=== PATIENT | male | born 1965 | race Caucasian/White ===

== ENCOUNTER 2016-10-05 13:42 | Inpatient (IN) ==
[2016-10-05] MEDS ORDERED: *HR* LORazepam 2 MG/ML VIAL IVP ONE (14:00)
[2016-10-05 14:17] LABS: Basophils % 0.3 %; Eosinophils % 0.5 %; Hemoglobin 20.4 g/dL (12.9-16.9); Immature Granulocytes % 0.4 % (0-4); Lymphocytes # 0.9 K/mcL (0.6-4.6); Lymphocytes % 11.5 %; Mean Corpuscular HGB Conc 30.8 g/dL (31.6-35.5); Mean Corpuscular Hemoglobin 29.7 pg (28.0-33.3); Mean Corpuscular Volume 96.2 fL (83.0-100.0); Mean Platelet Volume 10.5 fL (9.4-12.4); Monocytes # 0.1 K/mcL (0.0-1.3); Monocytes % 1.6 %; Neutrophils # 6.3 K/mcL (1.6-8.9); Platelet Count 151 K/mcL (140-400); Red Blood Count 6.88 M/mcL (4.19-5.50); Red Cell Distribution Width 17.6 % (11.5-14.5); Segmented Neutrophils % 85.7 %
[2016-10-05 14:18] LABS: Hematocrit 66.2 % (37.5-50.1)
[2016-10-05 14:28] LABS: BUN/Creatinine Ratio 22 (6-26); Blood Urea Nitrogen 27 mg/dL (8-26); Calcium 9.4 mg/dL (8.6-10.8); Carbon Dioxide 33 mEq/L (19-29); Chloride 97 mEq/L (98-109); Glucose 130 mg/dL (70-99); Osmolality,Calculated 291 (280-300); Potassium 5.3 mEq/L (3.5-4.5); Sodium 137 mEq/L (136-145); eGFR For African Americans > 60 (> 60); eGFR For Non-African Americans > 60 (> 60)
[2016-10-05] MEDS ORDERED: 0.9 % Sodium Chloride 1,000 ML IVC ONE (14:29)
--- NOTE | 2016-10-05 14:54 | Emergency Department Note ---
START Narrative - START START: I examined this patient and my medical decision-making was reviewed with the FLORICULTURE PROFESSOR/PA/Advanced Practice Nurse/Resident Physician. I agree with the documented findings, disposition and treatment plan as described except to the extent set forth below. ED attending note: Patient seen with emergency medicine resident Dr. José. Please see a copy of his note for details of the H&P, evaluation, management and disposition of this patient. We independently had [id number] contact with the patient Briefly: A 51-year-old male from the [facility] they were working him up for pulmonary embolism but he was too anxious from the CT scanner. [facility] here for the procedural sedation or anxiolysis and CT scan. CT scan is pending. D-dimer per report was 1000 at the [facility]. No prior history of blood clots either in the patient was family. Disposition pending.
--- NOTE | 2016-10-05 17:20 | Emergency Department Note ---
Disposition Clinical Impression: Hypoxemia, Dyspnea on exertion, Polycythemia, Hyperkalemia, Azotemia Disposition: Admitted As Inpatient Condition: Fair Time of Disposition: 18:56 SOB HPI - General Chief Complaint: ED Shortness of Breath/Dyspnea Stated Complaint: R/O PE/ Anxiety Time Seen by Provider: 10/05/16 13:58 Source: patient, EMS Limitations: no limitations Nursing Notes Reviewed: Yes Vital Signs Reviewed: Yes - History of Present Illness This is a 51-year-old male who was brought in from the [place] by EMS for concerns for possible PE. Patient presented to the [place] secondary for an exacerbation of his chronic back pain issues secondary to straining his lower back while trying to hold a RV wall. Patient back pain 10/04 constant no radiation to the legs. Patient has history of previous back surgery times one year ago. [place] physician noticed that patient had blue tinged lips and was concerned for cyanosis secondary to poor perfusion and ventilation was long segmental mismatch possibly PE. They tried to get the patient through CTA but patient was claustrophobic and they did not seem to have any medications to facilitate the scan. Patient was then transferred to a [facility] emergency department - Related Data Home Medications Medication Instructions Recorded Confirmed Allopurinol [Zyloprim 100 MG] 100 mg PO DAILY 10/05/16 10/05/16 Aspirin 325 mg PO DAILY 10/05/16 10/05/16 Furosemide [Lasix] 20 mg PO DAILY 10/05/16 10/05/16 Lisinopril [Zestril] 40 mg PO DAILY 10/05/16 10/05/16 Metoprolol Succinate 100 mg PO DAILY 10/05/16 10/05/16 Naproxen [Naprosyn] 500 mg PO BID PRN 10/05/16 10/05/16 Allergies Allergy/AdvReac Type Severity Reaction Status Date / Time No Known Allergies Allergy Verified 10/05/16 13:45 All systems ED: reviewed and negative except as stated. Review of Systems: As Per HPI Constitutional: Denies: fever, chills Eyes: Denies: eye pain, vision change ENT ED: Denies: throat pain, congestion Cardiovascular: Reports: dyspnea on exertion. Denies: chest pain, palpitations Respiratory: Reports: dyspnea. Denies: cough, wheezes Gastrointestinal: Denies: abdominal pain, nausea, vomiting, diarrhea Genitourinary: Denies: urgency, dysuria Musculoskeletal: Reports: back pain Neurological: Denies: headache, weakness Psychiatric: Denies: anxiety Endocrine: Reports: fatigue Allergic/Immunologic: Denies: facial swelling Past Medical History - Past Medical History Attestation: Yes The following information was validated with the patient. Source: patient Medical history: Reports: CHF, hypertension Psychiatric history: Reports: no psych history - Social History Smoking Status: Current every day smoker Smokeless Tobacco Status: No Alcohol use: Reports: none Drug use: Reports: none Physical Exam Vital Signs Temperature 98 F 10/05/16 13:45 Pulse Rate 56 10/05/16 13:45 Respiratory Rate 16 10/05/16 13:45 Blood Pressure 139/109 10/05/16 13:45 O2 Sat by Pulse Oximetry 93 10/05/16 13:45 Temperature 98 F 10/05/16 13:45 Pulse Rate 57 10/05/16 17:25 Respiratory Rate 18 10/05/16 17:25 Blood Pressure 116/75 10/05/16 17:25 O2 Sat by Pulse Oximetry 83 10/05/16 17:25 Oxygen Delivery Oxygen Delivery Room Air -General Appearance: Patient is a 51-year-old male who is alert and oriented 3 and in no acute distress. Patient has visible cyanosis to his lips and some pallor to skin. Patient's nondiaphoretic. Patient is cooperative to exam. -Neurological exam: Cranial nerves II-12 intact, no focal deficits observed, strength equal 5/5 bilaterally in upper and lower extremities, cerebellar motion test negative. Negative loss of sensation - Head Head exam: atraumatic, normocephalic, normal inspection - Eye Eye exam: Present: normal appearance, PERRL, EOMI, negative for scleral icterus negative for conjunctival pallor - ENT ENT exam: normal exam, normal oropharynx, mucous membranes moist - Neck Neck exam: Present: normal inspection, full ROM, trachea midline, negative JVD - Chest Chest inspection: Present: Patient has bilateral equal rise and fall of chest wall. Non-tender to palpation. - Respiratory Respiratory exam: Clear to auscultation bilaterally without wheezes rales or rhonchi Cardiovascular Cardiovascular exam: Present: regular rate, normal rhythm, normal heart sounds, without murmurs rubs or gallops. - Abdominal Exam Abdominal exam: Present: soft, nondistended, Non-Tender light and deep palpation in all quadrants. Bowel sounds normoactive throughout all 4 quadrants. Negative for hyper or hyperresonance. - Extremities Exam Extremities exam: Present: normal inspection, full ROM, pulses equal regular radials and dorsal pedal. - Back Exam Back exam: Present: normal inspection, full ROM. Tender to palpation her lower paraspinal areas midline lower lumbar surgical scar present from back surgery incision appears clean no erythema and no purulence no swelling - Psychiatric Psychiatric exam: Present: normal affect, normal mood - Skin Skin exam: Present: warm, dry, intact, normal color - General Limitations: no limitations General appearance: alert, in no apparent distress Course - Reevaluation(s) Reevaluation #1: Patient doing well. Patient placed on O2 via nasal cannula, patient given Ativan for anxiety and CTA chest ordered Time: 14:01 Reevaluation #2: Patient CTA showed no PE, no aspiration for why patient's O2 sats dropping without activity while the patient is not on oxygen, patient's blood shows polycythemia with a hemoglobin of 20 Time: 15:00 Reevaluation #3: Patient was ambulated around the emergency department. Patient's O2 sats dropped to 79% stenosis taken off O2 and then to 77% after 30 feet. Patient breathing heavily Time: 17:50 - Consultations Consultation #1: Patient is accepted for admission by Nell Freitas CNP hospitalist Time: 18:21 Vital Signs Temperature 98 F 10/05/16 13:45 Pulse Rate 56 10/05/16 13:45 Respiratory Rate 16 10/05/16 13:45 Blood Pressure 139/109 10/05/16 13:45 O2 Sat by Pulse Oximetry 93 10/05/16 13:45 Temperature 98 F 10/05/16 13:45 Pulse Rate 65 10/05/16 18:24 Respiratory Rate 16 10/05/16 19:06 Blood Pressure 104/80 10/05/16 19:06 O2 Sat by Pulse Oximetry 92 10/05/16 18:24 Oxygen Delivery Oxygen Delivery Room Air Shortness of Breath/Dyspnea - MDM Narrative Medical decision making narrative: Patient presented initially with concerns for PE. CTA showed no PE. Patient has elevated d-dimer they will and polycythemia with a hemoglobin of 20. Patient also has desaturations of this O2 sats when taken off oxygen and cyanosis of his lips that are persistent and worsens when patient's oxygen. After negative CT,attempted to see and this is physiologic or pathologic through ambulation. Ambulation quickly resulted and desaturation of patient's O2 sat which dropped to 79% after short distance down the [place] patient's O2 sat to 77%. Patient was short of breath. Patient is being reconnected to all his observation devices and placed back on O2. Recommend admission to the patient for further workup. Patient accepts decision for admittance. Patient is accepted for admission by Nell Freitas CNP hospitalist - Medical Records Medical records reviewed: Yes I reviewed the patient's medical records. Patient's records from the [place] show an elevated d-dimer of 1000 - Lab Data Lab results reviewed: Yes I reviewed the patient's lab results. Lab results narrative: Short CBC 10/05/16 Range/Units 14:06 WBC 7.4 (4.3-11.1) K/mcL Hgb 20.4 H (12.9-16.9) g/dL Hct 66.2 H (37.5-50.1) % Plt Count 151 (140-400) K/mcL Neutrophils # 6.3 (1.6-8.9) K/mcL BMP 10/05/16 Range/Units 14:06 Sodium 137 (136-145) mEq/L Potassium 5.3 H (3.5-4.5) mEq/L Chloride 97 L (98-109) mEq/L Carbon Dioxide 33 H (19-29) mEq/L BUN 27 H (8-26) mg/dL Creatinine 1.22 (0.72-1.25) mg/dL Glucose 130 H (70-99) mg/dL Calcium 9.4 (8.6-10.8) mg/dL Cardiac Enzymes 10/05/16 Range/Units 14:06 Troponin I 0.02 (0-0.03) ng/mL Result diagrams: 10/05/16 14:06 10/05/16 14:06 Lab Results 10/05/16 10/05/16 10/05/16 Range/Units 14:06 14:06 14:06 WBC 7.4 (4.3-11.1) K/mcL RBC 6.88 H (4.19-5.50) M/mcL Hgb 20.4 H (12.9-16.9) g/dL Hct 66.2 H (37.5-50.1) % MCV 96.2 (83.0-100.0) fL MCH 29.7 (28.0-33.3) pg MCHC 30.8 L (31.6-35.5) g/dL RDW 17.6 H (11.5-14.5) % Plt Count 151 (140-400) K/mcL MPV 10.5 (9.4-12.4) fL Immature Gran % 0.4 (0-4) % Seg Neutrophils % 85.7 % Lymphocytes % 11.5 % Monocytes % 1.6 % Eosinophils % 0.5 % Basophils % 0.3 % Neutrophils # 6.3 (1.6-8.9) K/mcL Lymphocytes # 0.9 (0.6-4.6) K/mcL Monocytes # 0.1 (0.0-1.3) K/mcL Eosinophils # 0.0 (0.0-0.6) K/mcL Basophils # 0.0 (0.0-0.2) K/mcL Sodium 137 (136-145) mEq/L Potassium 5.3 H (3.5-4.5) mEq/L Chloride 97 L (98-109) mEq/L Carbon Dioxide 33 H (19-29) mEq/L BUN 27 H (8-26) mg/dL Creatinine 1.22 (0.72-1.25) mg/dL Est GFR ( Amer) > 60 (> 60) Est GFR (Non-Af Amer) > 60 (> 60) BUN/Creatinine Ratio 22 (6-26) Glucose 130 H (70-99) mg/dL Calculated Osmolality 291 (280-300) Calcium 9.4 (8.6-10.8) mg/dL Troponin I 0.02 (0-0.03) ng/mL B-Natriuretic Peptide (0-100) pg/mL 10/05/16 Range/Units 14:06 WBC (4.3-11.1) K/mcL RBC (4.19-5.50) M/mcL Hgb (12.9-16.9) g/dL Hct (37.5-50.1) % MCV (83.0-100.0) fL MCH (28.0-33.3) pg MCHC (31.6-35.5) g/dL RDW (11.5-14.5) % Plt Count (140-400) K/mcL MPV (9.4-12.4) fL Immature Gran % (0-4) % Seg Neutrophils % % Lymphocytes % % Monocytes % % Eosinophils % % Basophils % % Neutrophils # (1.6-8.9) K/mcL Lymphocytes # (0.6-4.6) K/mcL Monocytes # (0.0-1.3) K/mcL Eosinophils # (0.0-0.6) K/mcL Basophils # (0.0-0.2) K/mcL Sodium (136-145) mEq/L Potassium (3.5-4.5) mEq/L Chloride (98-109) mEq/L Carbon Dioxide (19-29) mEq/L BUN (8-26) mg/dL Creatinine (0.72-1.25) mg/dL Est GFR ( Amer) (> 60) Est GFR (Non-Af Amer) (> 60) BUN/Creatinine Ratio (6-26) Glucose (70-99) mg/dL Calculated Osmolality (280-300) Calcium (8.6-10.8) mg/dL Troponin I (0-0.03) ng/mL B-Natriuretic Peptide 885 H (0-100) pg/mL - Radiology Data Radiology results reviewed: Yes I reviewed the patient's radiology results. Chest CTA 10/05/16 14:28 IMPRESSION: No evidence of pulmonary embolism or acute pulmonary abnormality. Mild mediastinal adenopathy of uncertain etiology. D/ / Bhupendra Li MD / Bhupendra Li MD Interpreting Provider: Bhupendra Li MD - EKG Data EKG attestation: Yes I reviewed and interpreted this EKG. EKG results narrative: EKG taken at 10/05/2016 at 1417 hrs. shows a sinus bradycardia with left atrial enlargement seen in V2 and V3 V4, patient shows irregular P waves very large and lead to, some minor ST depression in lead 3 and aVF. Patient has inverted T waves in V3. No previous EKG for comparison
[2016-10-05] MEDS ORDERED: *HR* HYDROmorphone (PF) 1 MG/ML SYRINGE IVP ONE (17:30)
[2016-10-05 20:06] LABS: VBG PH 7.2 pH Units (7.32-7.42)
[2016-10-05] MEDS ORDERED: Acetaminophen 325 MG TABLET PO PRN (20:46)
--- NOTE | 2016-10-05 21:02 | Internal Med History&Physical ---
<Basil Levin - Last Filed: 10/05/16 22:57> Date of Encounter: 10/05/16 Time of Encounter: 20:00 Assessment and Plan (1) Acute on chronic respiratory failure with hypoxia and hypercapnia Current visit: Yes Status: Acute - Noted to have cyanotic lips with reported O2 sat drop to as low as 77% on room air in ED. - ABG showed pH 7.17, pCO2 106, pO2 84 and HCO3 38.7 on 6L NC. - Unknown etiology at this time. Differential include underlying COPD (given significant smoking history), CHF (given BLE leg edema), sleep apnea (given reported snoring), OHS (given BMI 43), valvular disease. Less likely pneumonia or PE per CTA chest. - Will obtain echocardiogram for further evaluation. - Duoneb scheduled and consider adding steroid. - Start BiPAP and closely monitor with repeat ABG. - Will consult pulmonology and appreciate further evaluation and recommendations. (2) Hyperkalemia Current visit: Yes Status: Acute - K at 5.3 on admission. - EKG with AK 161 & QRS 106, no peaked T wave. - Give Ca gluconate and insulin IV with D50W. - Duoneb scheduled. - Continue Lasix. - Continue to monitor K and consider Kayexalate if hyperkalemia persists. (3) Polycythemia Current visit: Yes Status: Chronic - Hgb 20.4 / Hct 66.2. - Likely secondary to active smoking and possible underlying sleep apnea/OHS. - Continue to monitor. (4) Tobacco abuse Current visit: Yes Status: Chronic - Smoking cessation counseling. - Nicotine gum for nicotine craving. (5) Hypertension Current visit: Yes Status: Chronic - BP within normal range. - Continue home antihypertensive regimen. Qualifiers: Hypertension type: essential hypertension Qualified Code(s): I10 - Essential (primary) hypertension (6) DVT prophylaxis Current visit: Yes Status: Acute - SQ Lovenox. Internal Medicine - H&P: HPI Chief complaint: Hypoxia Admitted From: Emergency Dept Plans for Post Hospital Care: Home History of present illness: Mr. schnedier is a 51 year old male with PMH of HTN. Patient initially presented to [place] with abdominal pain below umbilicus which he thought it's related to his chronic low back pain s/p hernia disc repair. In [place], patient was noted to have blue-tinged lip and found to have O2 sat at 70s %. Concern of PE but [place] cannot get CTA chest done due to patient's claustrophobia. Therefore patient was sent to [place] ED, where CTA chest was done and showed no evidence of pulmonary embolism or acute pulmonary abnormality except mild mediastinal adenopathy of uncertain etiology. Patient reports noticing blue-tinged lip since this morning but also has increase in fatigue, BLE swelling and poor appetite for a week. Patient also has some dyspnea on exertion but not at rest or orthopnea. Patient denies chest pain/discomfort, palpitation, lightheadedness , syncope, cough, fever. Patient admits snoring at nighttime but never has any work-up for sleep apnea in the past. Patient smokes 1 pack per day for more than 30 years but denies EtOH or illicit drug use. Patient works to [employer] and does have exposure to cleaning chemicals, horse, raccoon and fleas but states that he wears mask and personal protective equipments. Patient also has potential exposure to closed environment like garage but reports it's usually well ventilated. Patient denies any known recent exposure to birds. Patient denies recent travel or sick contact. Patient reports no known prior history of heart or lung problem and he does not use oxygen at home. Patient is full code. In ED, patient was noted to have O2 sat drop to as low as 77% when walking and not on oxygen. Past Med Surg Social Fam HX - Past Medical History Medical history: hypertension Psychiatric history: no psych history - Past Surgical History Surgical History: orthopedic, other (lumbar spine hernia disc repair) - Social History Smoking Status: Current every day smoker Smokeless Tobacco Status: No Alcohol use: none Drug use: none - Family History Father Living Status: Age at : 56 Cause of : [place] Internal Medicine - H&P: Meds Allopurinol [Zyloprim 100 MG] 100 mg PO DAILY 10/05/16 [History] Aspirin 325 mg PO DAILY 10/05/16 [History] Furosemide [Lasix] 20 mg PO DAILY 10/05/16 [History] Lisinopril [Zestril] 40 mg PO DAILY 10/05/16 [History] Metoprolol Succinate 100 mg PO DAILY 10/05/16 [History] Naproxen [Naprosyn] 500 mg PO BID PRN 10/05/16 [History] Allergies No Known Allergies Allergy (Verified 10/05/16 13:45) All Systems PM: A 10-system review of systems was performed and is negative for pertinent findings except as documented above in the HPI. - Constitutional Constitutional: anorexia, fatigue, no fever(s), no weight gain, no weight loss - EENT Eyes: no change in vision Ears: no decreased hearing Nose, mouth and throat: no dysphagia, no odynophagia - Cardiovascular Cardiovascular ROS IM: edema, no chest pain, no lightheadedness, no palpitations , no syncope - Respiratory Respiratory: dyspnea on exertion, no cough, no hemoptysis - Gastrointestinal Gastrointestinal: abdominal pain, no diarrhea, no hematochezia, no melena, no nausea, no vomiting - Genitourinary Genitourinary ROS male: no difficulty urinating, no dysuria, no hematuria - Musculoskeletal Musculoskeletal ROS IM: no arthralgias, no myalgias - Integumentary Integumentary IM: other (Flea bites on bilateral lower legs) - Neurological Neurological ROS: no focal weakness, no numbness, no tingling - Hematologic/Lymphatic Hematologic/Lymphatic: no easy bleeding, no easy bruising - Constitutional Vitals: Temp Pulse Resp BP Pulse Ox 98 F 67 18 137/87 96 10/05/16 13:45 10/05/16 20:46 10/05/16 20:46 10/05/16 20:46 10/05/16 20:46 General appearance: Present: cooperative, A&O X 3, morbidly obese, no acute distress, answers questions appropriately - Head Head exam: Present: atraumatic, normocephalic - Eye Eye exam: Present: EOMI, PERRL, conjuntiva pink, sclera anicteric - ENT ENT exam: Present: mucous membranes dry Additional comments: Cyanotic lips noted. - Neck Neck exam general surgery: Present: supple, trachea midline. Absent: lymphadenopathy - Respiratory Respiratory exam: Present: decreased breath sounds. Absent: accessory muscle use, rales, rhonchi, wheezes - Cardiovascular Cardiovascular exam: Present: RRR, +S1, +S2. Absent: diastolic murmur, gallop, rubs, systolic murmur Additional comments: Distant heart sounds due to patient's body habitus. - GI/Abdominal GI/Abdominal exam: Present: normal bowel sounds, soft, no peritoneal signs. Absent: distended, tenderness - Extremities Exam Extremities exam: Present: pedal edema (Mild non-pitting bilateral lower extremity edema), warm, radial pulses palpable and symmetrical. Absent: calf tenderness - Neurological Exam Neurological exam: Present: CN II-XII intact, oriented X3, no focal deficits. Absent: pronater drift, facial droop, speech deficit - Skin Skin exam: Present: dry, intact, warm Additional comments: Flea bites at bilateral lower legs. Internal Med - H&P Results - Labs CBC & Chem 7: 10/05/16 14:06 10/05/16 14:06 - ABG Interpretation ABG results: 10/05/16 19:57 VBG pH 7.20 L VBG pCO2 92 H VBG pO2 64 H VBG HCO3 36.0 H <Carlito Morales - Last Filed: 10/05/16 23:48> Date of Encounter: 10/05/16 Internal Medicine - H&P: HPI History of present illness: Mr. schneider is a 51 year old male All Systems PM: A 10-system review of systems was performed and is negative for pertinent findings except as documented above in the HPI. - Constitutional Vitals: Temp Pulse Resp BP Pulse Ox 98.0 F 65 18 132/81 95 10/05/16 21:58 10/05/16 21:58 10/05/16 22:41 10/05/16 21:58 10/05/16 22:41 Internal Med - H&P Results - Labs CBC & Chem 7: 10/05/16 14:06 10/05/16 14:06 Labs: Liver Function 10/05/16 Range/Units 21:26 Total Bilirubin 1.4 H (0.2-1.2) mg/dL Direct Bilirubin 0.5 (0.0-0.5) mg/dL AST 23 (5-34) Units/L ALT 23 (0-55) Units/L Alkaline Phosphatase 109 (38-126) Units/L Albumin 3.3 L (3.5-5.0) g/dL - ABG Interpretation ABG results: 10/05/16 10/05/16 19:57 21:44 ABG pH 7.17 L* ABG pCO2 106 H* ABG pO2 84 L ABG HCO3 38.7 H ABG Total CO2 42.0 H ABG O2 Saturation 93 L ABG Base Excess 3.9 H VBG pH 7.20 L VBG pCO2 92 H VBG pO2 64 H VBG HCO3 36.0 H - Attending Attestation I examined this patient and my medical decision-making was reviewed with the Resident Physician, Dr Basil Levin. I agree with the documented findings, disposition and treatment plan as described except to the extent set forth below. My findings are summarized below: Patient presented to the hospital with significant hypoxia, currently oxygenating well with supplemental oxygen. On exam he is in no acute distress, lungs are clear. Plan: We will check ABG, check carboxy hemoglobin, check echocardiogram. Consult pulmonary for further workup. I reviewed the patient's chest CT shows no infiltrate, right lower mediastinal lymphadenopathy as well as right paratracheal adenopathy noted.
[2016-10-05 21:17] LABS: Carboxyhemoglobin 8.5 % (0-5)
[2016-10-05] MEDS ORDERED: Calcium Gluconate 2,000 MG in D5% in Water 100 ML IVPB ONE (21:50)
[2016-10-05] MEDS ORDERED: Insulin Human Regular 10 UNIT in 0.9 % Sodium Chloride 10 ML IV ONE (21:51)
[2016-10-05] MEDS ORDERED: *HR* Dextrose 50 % in Water (Syg) 50 ML SYRINGE IVP ONE (21:53)
[2016-10-05 21:56] LABS: ABG Base Excess 3.9 mEq/L (-2.0 to 3.0); ABG HCO3 38.7 mEQ/L (21-27); ABG Oxygen Saturation 93 % (95-98); ABG PO2 84 mmHg (85-104)
[2016-10-05 21:56] LABS: Albumin 3.3 g/dL (3.5-5.0); Albumin/Globulin Ratio 0.7 (1.1-2.2); Bilirubin,Direct 0.5 mg/dL (0.0-0.5); Bilirubin,Indirect 0.9 mg/dL (0.0-1.2); Bilirubin,Total 1.4 mg/dL (0.2-1.2); Total Protein 8.3 g/dL (6.0-8.3)
[2016-10-05] MEDS ORDERED: Nicotine 2 MG GUM BC PRN (21:59)
[2016-10-05 22:01] LABS: ABG PH 7.17 pH Units (7.32-7.45)
[2016-10-05 22:02] LABS: ABG PCO2 106 mmHg (35-45); Blood Gas FiO2 44 %
[2016-10-05 22:15] LABS: Thyroid Stimulating Hormone 0.956 mcIU/mL (0.350-4.840)
[2016-10-05] MEDS: Ipratropium/Albuterol Neb 3 ML IH SCH (22:41)
[2016-10-06] MEDS: Ipratropium/Albuterol Neb 3 ML IH SCH ×4 (03:05→22:12)
[2016-10-06 03:21] LABS: ABG Base Excess 4.2 mEq/L (-2.0 to 3.0); ABG Oxygen Saturation 93 % (95-98); ABG PO2 82 mmHg (85-104); ABG TCO2 42.3 mEq/L (20-26)
[2016-10-06 03:22] LABS: Blood Gas FiO2 65 %
[2016-10-06 03:24] LABS: ABG PCO2 107 mmHg (35-45); ABG PH 7.17 pH Units (7.32-7.45)
[2016-10-06 05:19] LABS: ABG Base Excess 2.6 mEq/L (-2.0 to 3.0); ABG Oxygen Saturation 95 % (95-98); ABG PO2 93 mmHg (85-104); ABG TCO2 38.8 mEq/L (20-26)
[2016-10-06 05:20] LABS: Blood Gas FiO2 60 %
[2016-10-06 05:21] LABS: ABG PCO2 92 mmHg (35-45)
[2016-10-06 05:32] LABS: Basophils % 0.1 %; Hemoglobin 20.7 g/dL (12.9-16.9); Immature Granulocytes % 0.4 % (0-4); Lymphocytes # 0.8 K/mcL (0.6-4.6); Lymphocytes % 8.4 %; Mean Corpuscular HGB Conc 29.8 g/dL (31.6-35.5); Mean Corpuscular Hemoglobin 29.5 pg (28.0-33.3); Mean Corpuscular Volume 99.1 fL (83.0-100.0); Mean Platelet Volume 10.9 fL (9.4-12.4); Monocytes # 0.3 K/mcL (0.0-1.3); Monocytes % 3.1 %; Platelet Count 155 K/mcL (140-400); Red Blood Count 7.01 M/mcL (4.19-5.50); Red Cell Distribution Width 17.7 % (11.5-14.5)
[2016-10-06 05:44] LABS: INR 1.1; Prothrombin Time 11.7 Seconds (9.4-12.1)
[2016-10-06 05:45] LABS: BUN/Creatinine Ratio 23 (6-26); Blood Urea Nitrogen 30 mg/dL (8-26); Carbon Dioxide 36 mEq/L (19-29); Chloride 95 mEq/L (98-109); Glucose 92 mg/dL (70-99); Osmolality,Calculated 296 (280-300); Potassium 5.4 mEq/L (3.5-4.5); Sodium 140 mEq/L (136-145); eGFR For African Americans > 60 (> 60); eGFR For Non-African Americans 58 (> 60)
[2016-10-06 05:47] LABS: Activated Partial Thrombo Time 31.6 Seconds (26.0-36.0)
[2016-10-06 05:51] LABS: Hematocrit 69.5 % (37.5-50.1)
--- NOTE | 2016-10-06 06:39 | Pulmonology Consult Note ---
Date of Encounter: 10/06/16 Time of Encounter: 06:39 Assessment and Plan (1) Acute on chronic respiratory failure with hypoxia and hypercapnia Current Visit: Yes Status: Acute 51-year-old gentleman presenting with severe hypoxemic hypercarbic respiratory failure upon initial presentation for what appears to be an unrelated issue. I think the overall picture that is consistent from the ABG and his severe polycythemia as this is a process that has been going on for some time and it is likely the culmination of several chronically poorly controlled/undiagnosed issues including heart failure and possibly pulmonary hypertension either primary or secondary cannot be completely excluded at this time. Additionally he has obesity hypoventilation syndrome along with likely undiagnosed SOSA and I suspected underlying COPD CT scan is not impressive for intraparenchymal process reflected of diffuse parenchymal lung disease (ILD) although CTA is not the test of choice to evaluate the fine architectural distortion so this is not entirely excluded. He does have a slight elevation in his creatinine although I am not sure what his baseline is be helped pull records from the [facility] to see what his baseline renal function is. Recs: 1. 2D echocardiogram with bubble study 2. Start Scheduled CARLIE/JES (bronchodilators every 4-6 hours) 3. Cont Bipap continous today and at night. Can start to give breaks in AM. Cont supplemental 02 to keep SaO2 >88-92% 4. Favor diuresis with loop diuretic for goal negative 1-2L closely monitor Renal Function and electrolytes 5. DVT Prophylaxis 6. Tobacco Cessation Counseling Given 7. Outpatient PSG (2) Hypertension Current Visit: Yes Status: Chronic Qualifiers: Hypertension type: essential hypertension Qualified Code(s): I10 - Essential (primary) hypertension (3) Polycythemia Current Visit: Yes Status: Chronic (4) Tobacco abuse Current Visit: Yes Status: Chronic (5) COPD suggested by initial evaluation Current Visit: Yes Status: Acute (6) Obesities, morbid Current Visit: Yes Status: Acute History of Present Illness Consult date: 10/06/16 Requesting physician: Carlito Morales Reason for consult: hypoxemia Chief complaint: Back Pain History of present illness: This is a very pleasant 51-year-old gentleman on who presented to the ID for low back pain was found to have acute hypoxia and cyanotic lips and was transferred to [facility] for possibility of workup of PE. CT angiogram was performed here which was negative for acute filling defect but ABG was consistent with acute on chronic respiratory acidosis with hypoxemia. He was noted to have severe polycythemia along with an elevated BNP. Pulmonary was consulted for further evaluation of this respiratory failure. 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 He is a long-time smoker of a pack a day since adolescence he is obese has unrefreshed sleep but sleeps alone does not know if he snores loudly does not have frequent daytime hypersomnolence however or drowsiness/falling asleep while driving. He denies chest pain or productive cough he has not had any fevers hemoptysis or weight loss. He keeps a dog but no exotic animals. He has not traveled recently and has no sick contacts Past Med Surg Social Fam HX - Past Medical History Medical history: hypertension Psychiatric history: no psych history - Past Surgical History Surgical History: orthopedic, other - Social History Smoking Status: Current every day smoker Packs per day: 1 Smokeless Tobacco Status: No Alcohol use: none Drug use: none - Family History Father Living Status: Age at : 56 Cause of : [place] Hx Family Cardiac Disorders: Yes ([place]) Hx Family Respiratory Disorders: No Hx Family Cancer: No Hx Family GI Disorders: No Hx Family Genitourinary Disorders: No Hx Family Endocrine Disorder: No Hx Family Musculoskeletal Disorders: No Hx Family Neuromuscular Disorders: No Hx Family Neurologic Disorders: No Hx Family HEENT Disorders: No Hx Family Autoimmune Disorders: No Hx Family Reproductive Disorders: No Hx Family Psychosocial Disorders: No Hx Family Medical Disorders: No Medications and Allergies Allopurinol [Zyloprim 100 MG] 100 mg PO DAILY 10/05/16 [History] Aspirin 325 mg PO DAILY 10/05/16 [History] Furosemide [Lasix] 20 mg PO DAILY 10/05/16 [History] Lisinopril [Zestril] 40 mg PO DAILY 10/05/16 [History] Metoprolol Succinate 100 mg PO DAILY 10/05/16 [History] Naproxen [Naprosyn] 500 mg PO BID PRN 10/05/16 [History] Allergies No Known Allergies Allergy (Verified 10/05/16 13:45) All Systems: A 10-system review of systems was performed and is negative for pertinent findings except as documented above in the HPI. Physical Examination Vital Signs: Vital Signs, Last 4 Hours Temp Pulse Resp BP Pulse Ox 10/06/16 04:26 98.0 F 50 19 152/100 96 10/06/16 03:05 19 94 General appearance: no acute distress Eyes: nonicteric ENT: oropharynx moist Mallampati (class): 4 Neck: supple Effort: mildly labored Auscultation: bilateral: diminished breath sounds, rales Cardiovascular: regular rate and rhythm Gastrointestinal: normoactive bowel sounds, soft, other (Distended) Extremities: cyanosis, edema Musculoskeletal: no deformities normal mental status, non-focal exam mood appropriate Ventilator Settings Ventilator Settings: Ventilator Settings, Last 8 Hours Ventilator Tidal Volume 650 Setting Ventilator Respiratory Rate 18 Setting Results - Laboratory Findings CBC and BMP: 10/06/16 04:40 10/06/16 04:40 ABG ABG pH 7.20 pH Units (7.32-7.45) L* 10/06/16 05:02 ABG pCO2 92 mmHg (35-45) H* 10/06/16 05:02 ABG pO2 93 mmHg (85-104) 10/06/16 05:02 ABG O2 Saturation 95 % (95-98) 10/06/16 05:02 PT/INR, D-dimer PT 11.7 Seconds (9.4-12.1) 10/06/16 04:40 Abnormal lab findings: Abnormal lab results RBC 7.01 M/mcL (4.19-5.50) H 10/06/16 04:40 Hgb 20.7 g/dL (12.9-16.9) H 10/06/16 04:40 Hct 69.5 % (37.5-50.1) H 10/06/16 04:40 MCHC 29.8 g/dL (31.6-35.5) L 10/06/16 04:40 RDW 17.7 % (11.5-14.5) H 10/06/16 04:40 ABG pH 7.20 pH Units (7.32-7.45) L* 10/06/16 05:02 ABG pCO2 92 mmHg (35-45) H* 10/06/16 05:02 ABG HCO3 36.0 mEQ/L (21-27) H 10/06/16 05:02 ABG Total CO2 38.8 mEq/L (20-26) H 10/06/16 05:02 VBG pH 7.20 pH Units (7.32-7.42) L 10/05/16 19:57 VBG pCO2 92 mmHg (41-51) H 10/05/16 19:57 VBG pO2 64 mmHg (25-40) H 10/05/16 19:57 VBG HCO3 36.0 mEq/L (21-27) H 10/05/16 19:57 Carboxyhemoglobin 8.5 % (0-5) H 10/05/16 19:57 Potassium 5.4 mEq/L (3.5-4.5) H 10/06/16 04:40 Chloride 95 mEq/L (98-109) L 10/06/16 04:40 Carbon Dioxide 36 mEq/L (19-29) H 10/06/16 04:40 BUN 30 mg/dL (8-26) H 10/06/16 04:40 Creatinine 1.31 mg/dL (0.72-1.25) H 10/06/16 04:40 Est GFR (Non-Af Amer) 58 (> 60) L 10/06/16 04:40 POC Glucose 123 (58-89) H 10/05/16 23:06 Total Bilirubin 1.4 mg/dL (0.2-1.2) H 10/05/16 21:26 B-Natriuretic Peptide 885 pg/mL (0-100) H 10/05/16 14:06 Albumin 3.3 g/dL (3.5-5.0) L 10/05/16 21:26 Globulin 5.0 g/dL (2.4-3.5) H 10/05/16 21:26 Albumin/Globulin Ratio 0.7 (1.1-2.2) L 10/05/16 21:26 - Diagnostic Findings Chest x-ray: report reviewed, image reviewed CT scan - chest: report reviewed, image reviewed Consult Discharge Plan - Plan [facility]errals: [facility] [Primary Care Provider] -
[2016-10-06] MEDS: *HR* Enoxaparin 40 MG/0.4 ML SYRINGE SQ SCH (06:40)
[2016-10-06] MEDS: Lisinopril 20 MG TABLET PO SCH (07:49)
[2016-10-06] MEDS: Metoprolol XL (24 HR) Succ 50 MG TAB.ER.24H PO SCH (07:49)
[2016-10-06] MEDS: Aspirin 325 MG TABLET PO SCH (07:49)
[2016-10-06] MEDS: methylPREDNISolone 125 MG/2 ML VIAL IVP SCH ×3 (07:49→17:19)
[2016-10-06] MEDS ORDERED: Furosemide 20 MG TABLET PO SCH (09:00)
[2016-10-06] MEDS ORDERED: Ketorolac 30 MG/ML VIAL IVP ONE (09:45)
[2016-10-06 10:28] LABS: ABG Base Excess 2.9 mEq/L (-2.0 to 3.0); ABG HCO3 37.4 mEQ/L (21-27); ABG Oxygen Saturation 98 % (95-98); ABG PO2 127 mmHg (85-104); ABG TCO2 40.6 mEq/L (20-26)
[2016-10-06 10:30] LABS: ABG PH 7.16 pH Units (7.32-7.45)
[2016-10-06 10:31] LABS: ABG PCO2 105 mmHg (35-45); Blood Gas FiO2 60 %
--- NOTE | 2016-10-06 11:23 | Internal Med Progress Note ---
<Severo Morton - Last Filed: 10/06/16 16:31> Date of Encounter: 10/06/16 Time of Encounter: 11:12 - Assessment and plan (1) Acute on chronic respiratory failure with hypoxia and hypercapnia Current Visit: Yes Status: Acute Assessment and plan: ABG: pH 7.16, pCO2 105, pO2 127, HCO3 37.4 - on BiPap, O2 sat 90's - repeat ABG in afternoon: pH 7.30, pCO2 76, pO2 64, pHCO3 37.4 He removed BiPaP this afternoon and O2 sat dropped to 72% Unknown etiology at this time: evidence of fluid overload, complicated clinical picture indicating COPD, CHF, sleep apena, and OHS CTA chest showed no acute processes Increase Lasix to 20 mg IV BID - goal I&O net negative 1-2 L Echo pending Pulmonology following -appreciate recommendations Duonebs and Solu-medrol Q6H DVT prophylaxis - Lovenox (2) Hyperkalemia Current Visit: Yes Status: Acute Assessment and plan: K 5.4 now (5.3 on admission) - EKG no acute changes, no peaked T waves Ca gluconate, insulin IV, and D50W given once (3) Polycythemia Current Visit: Yes Status: Chronic Assessment and plan: Hgb 20.7 / Hct 69.5 - likely secondary to smoking, sleep apnea, OHS - continue to monitor (4) Hypertension Current Visit: Yes Status: Chronic Assessment and plan: Normotensive, continue home meds Qualifiers: Hypertension type: essential hypertension Qualified Code(s): I10 - Essential (primary) hypertension (5) Tobacco abuse Current Visit: Yes Status: Chronic Assessment and plan: Nicotine gum and smoking cessation counseling - Subjective Interval history: Patient seen and examined. Awakened easily. Reports that he is feeling well and has no complaints. Denies chest pain, dyspnea, cough, abdominal pain, N/V/D, dysuria, or leg pain. Admits to bilateral lower extremity edema. - Constitutional Vitals: Temp Pulse Resp BP Pulse Ox 97.5 F L 56 22 140/95 96 10/06/16 07:58 10/06/16 07:58 10/06/16 11:07 10/06/16 07:58 10/06/16 11:07 General appearance: Present: cooperative, A&O X 3, morbidly obese, no acute distress, answers questions appropriately - Head Head exam: Present: atraumatic, normocephalic - Eye Eye exam: Present: sclera anicteric - ENT ENT exam: Present: mucous membranes moist - Respiratory Respiratory exam: Present: decreased breath sounds. Absent: rales, rhonchi, wheezes - Cardiovascular Cardiovascular exam: Present: distant heart sounds, RRR. Absent: diastolic murmur, systolic murmur - Extremities Exam Extremities exam: Present: warm. Absent: cyanotic, tenderness Additional comments: Bilateral LE edema - Neurological Exam Neurological exam: Present: alert, CN II-XII intact, oriented X3, no focal deficits Internal Medicine: Result - Labs CBC & Chem 7: 10/06/16 04:40 10/06/16 04:40 Labs: Short CBC 10/06/16 Range/Units 04:40 WBC 9.1 (4.3-11.1) K/mcL Hgb 20.7 H (12.9-16.9) g/dL Hct 69.5 H (37.5-50.1) % Plt Count 155 (140-400) K/mcL Neutrophils # 8.0 (1.6-8.9) K/mcL BMP 10/06/16 04:40 Sodium 140 Potassium 5.4 H Chloride 95 L Carbon Dioxide 36 H BUN 30 H Creatinine 1.31 H Glucose 92 Calcium 10.0 Liver Function 10/05/16 Range/Units 21:26 Total Bilirubin 1.4 H (0.2-1.2) mg/dL Direct Bilirubin 0.5 (0.0-0.5) mg/dL AST 23 (5-34) Units/L ALT 23 (0-55) Units/L Alkaline Phosphatase 109 (38-126) Units/L Albumin 3.3 L (3.5-5.0) g/dL - ABG Interpretation ABG results: ABG ABG pH 7.16 pH Units (7.32-7.45) L* 10/06/16 10:17 ABG pCO2 105 mmHg (35-45) H* 10/06/16 10:17 ABG pO2 127 mmHg (85-104) H 10/06/16 10:17 ABG O2 Saturation 98 % (95-98) 10/06/16 10:17 PT/INR, D-dimer PT 11.7 Seconds (9.4-12.1) 10/06/16 04:40 - Impressions Impressions Chest X-Ray 10/06/16 00:18 IMPRESSION: 1. Mild fullness/ill definition of pulmonary vascularity. Finding may in part be technical in nature as described above however component of mild pulmonary vascular congestion is also a possibility. Short-term follow-up formal PA and lateral views of the chest would be helpful for re-evaluation when the patient is clinically able. 2. Findings suggestive of presence of minimal bibasilar parenchymal disease/atelectasis as described above. D/ / 10/06/2016 05:21:02 Luis Carlos Valverde MD / [facility] Interpreting Provider: Luis Carlos Valverde MD Consult Discharge Plan - Plan [facility]errals: [facility] [Primary Care Provider] - <Michoacano Martel - Last Filed: 10/06/16 19:07> Date of Encounter: 10/06/16 - Assessment and plan (1) Acute on chronic respiratory failure with hypoxia and hypercapnia Current Visit: Yes Status: Acute (2) COPD exacerbation Current Visit: Yes Status: Acute (3) Hyperkalemia Current Visit: Yes Status: Acute (4) Hypertension Current Visit: Yes Status: Chronic Qualifiers: Hypertension type: essential hypertension Qualified Code(s): I10 - Essential (primary) hypertension (5) Polycythemia Current Visit: Yes Status: Chronic (6) Tobacco abuse Current Visit: Yes Status: Chronic (7) Obesities, morbid Current Visit: Yes Status: Chronic - Constitutional Vitals: Temp Pulse Resp BP Pulse Ox 97.9 F 72 16 122/71 92 10/06/16 18:47 10/06/16 18:47 10/06/16 18:47 10/06/16 18:47 10/06/16 18:47 Internal Medicine: Result - Labs CBC & Chem 7: 10/06/16 04:40 10/06/16 04:40 Labs: Short CBC 10/06/16 Range/Units 04:40 WBC 9.1 (4.3-11.1) K/mcL Hgb 20.7 H (12.9-16.9) g/dL Hct 69.5 H (37.5-50.1) % Plt Count 155 (140-400) K/mcL Neutrophils # 8.0 (1.6-8.9) K/mcL BMP 10/06/16 04:40 Sodium 140 Potassium 5.4 H Chloride 95 L Carbon Dioxide 36 H BUN 30 H Creatinine 1.31 H Glucose 92 Calcium 10.0 Liver Function 10/05/16 Range/Units 21:26 Total Bilirubin 1.4 H (0.2-1.2) mg/dL Direct Bilirubin 0.5 (0.0-0.5) mg/dL AST 23 (5-34) Units/L ALT 23 (0-55) Units/L Alkaline Phosphatase 109 (38-126) Units/L Albumin 3.3 L (3.5-5.0) g/dL - ABG Interpretation ABG results: ABG ABG pH 7.30 pH Units (7.32-7.45) L D 10/06/16 16:07 ABG pCO2 76 mmHg (35-45) H* D 10/06/16 16:07 ABG pO2 64 mmHg (85-104) L 10/06/16 16:07 ABG O2 Saturation 90 % (95-98) L 10/06/16 16:07 PT/INR, D-dimer PT 11.7 Seconds (9.4-12.1) 10/06/16 04:40 - Impressions Impressions Chest X-Ray 10/06/16 00:18 IMPRESSION: 1. Mild fullness/ill definition of pulmonary vascularity. Finding may in part be technical in nature as described above however component of mild pulmonary vascular congestion is also a possibility. Short-term follow-up formal PA and lateral views of the chest would be helpful for re-evaluation when the patient is clinically able. 2. Findings suggestive of presence of minimal bibasilar parenchymal disease/atelectasis as described above. D/ / 10/06/2016 05:21:02 Luis Carlos Valverde MD / [facility] Interpreting Provider: Luis Carlos Valverde MD - Attending Attestation I examined this patient and my medical decision-making was reviewed with the Resident Physician on 10/06/16. I agree with the documented findings, disposition and treatment plan as described except to the extent set forth below. Mr. Springer is currently admitted for respiratory failure. He remains high risk due to potential for worsening respiratory status. Mr Springer is on bipap. He arouses to name. Desaturates on machine. No fever or chills. No cough Exam Alert. Comfortable Mucus membranes dry Heart reg Some wheeze Abd soft. I/P 1. Resp failure 2. COPD Further diagnoses and plan as above.
[2016-10-06] MEDS: Furosemide 20 MG/2 ML VIAL IVP SCH ×2 (11:50→17:19)
[2016-10-06] MEDS ORDERED: Perflutren Lipid Microsphere 1.3 ML in 0.9 % Sodium Chloride 8.7 ML IVP ONE (13:41)
[2016-10-06] MEDS ORDERED: Ketorolac 15 MG/ML VIAL IVP ONE (15:20)
[2016-10-06 16:20] LABS: ABG Base Excess 6.6 mEq/L (-2.0 to 3.0); ABG HCO3 37.4 mEQ/L (21-27); ABG Oxygen Saturation 90 % (95-98); ABG PO2 64 mmHg (85-104); ABG TCO2 39.7 mEq/L (20-26); Blood Gas FiO2 44 %
[2016-10-06 16:22] LABS: ABG PCO2 76 mmHg (35-45)
[2016-10-07] MEDS: methylPREDNISolone 125 MG/2 ML VIAL IVP SCH ×4 (00:21→20:54)
[2016-10-07] MEDS: Ipratropium/Albuterol Neb 3 ML IH SCH ×4 (04:20→21:54)
[2016-10-07] MEDS: *HR* Enoxaparin 40 MG/0.4 ML SYRINGE SQ SCH (06:09)
--- NOTE | 2016-10-07 08:48 | Pulmonology Progress Note ---
Date of Encounter: 10/07/16 Time of Encounter: 08:48 Assessment and Plan (1) Acute on chronic respiratory failure with hypoxia and hypercapnia Current Visit: Yes Status: Acute Impression: 1. Acute on chronic hypoxic hypercarbic respiratory failure requiring noninvasive ventilation 2. OHS with suspected SOSA 3. Acutely decompensated chronic congestive heart failure possible systolic heart failure 4. Acute kidney injury unclear baseline SCr 5. Secondary polycythemia from chronic hypoxemia and tobacco abuse 6. Suspected chronic obstructive pulmonary disease 7. Tobacco abuse Recs: -Continue supplemental oxygen to keep saturation greater than 88% to 92%. Continue noninvasive ventilation at night currently using AVAPS mode. Patient should be qualified for noninvasive ventilation prior to discharge -Weight loss encouraged he will require a polysomnogram as an outpatient -Recommend diuresis of the patient blood pressure and heart rate control per primary medicine service given this is a new diagnosis may be worthwhile to consult cardiology -Recommend checking renal function labs today -Start long acting muscarinic agent such as tiotropium 18.5 g daily. Outpatient pulmonary function testing and pulmonary follow-up -Tobacco abuse counseling was given to the patient -Continue DVT prophylaxis (2) Hypertension Current Visit: Yes Status: Chronic Qualifiers: Hypertension type: essential hypertension Qualified Code(s): I10 - Essential (primary) hypertension (3) Polycythemia Current Visit: Yes Status: Chronic (4) Tobacco abuse Current Visit: Yes Status: Chronic (5) COPD suggested by initial evaluation Current Visit: Yes Status: Acute (6) Obesities, morbid Current Visit: Yes Status: Chronic Subjective Principal diagnosis: Respiratory Failure Interval history: I visited with the patient after he had finished his morning shower he is in no distress sitting up on nasal cannula oxygen says he feels good. Objective PUL Vital signs: Last Vital Signs Temp 98.1 F 10/07/16 08:10 Pulse 60 10/07/16 08:10 Resp 14 10/07/16 08:10 BP 126/77 10/07/16 08:10 Pulse Ox 96 10/07/16 08:10 General appearance: no acute distress Effort: normal Auscultation: bilateral: diminished breath sounds, rales Cardiovascular: regular rate and rhythm Extremities: edema normal mental status, non-focal exam mood appropriate Results - Laboratory Findings CBC and BMP: 10/06/16 04:40 10/06/16 04:40 ABG ABG pH 7.30 pH Units (7.32-7.45) L D 10/06/16 16:07 ABG pCO2 76 mmHg (35-45) H* D 10/06/16 16:07 ABG pO2 64 mmHg (85-104) L 10/06/16 16:07 ABG O2 Saturation 90 % (95-98) L 10/06/16 16:07 PT/INR, D-dimer PT 11.7 Seconds (9.4-12.1) 10/06/16 04:40 Abnormal lab findings: Abnormal lab results RBC 7.01 M/mcL (4.19-5.50) H 10/06/16 04:40 Hgb 20.7 g/dL (12.9-16.9) H 10/06/16 04:40 Hct 69.5 % (37.5-50.1) H 10/06/16 04:40 MCHC 29.8 g/dL (31.6-35.5) L 10/06/16 04:40 RDW 17.7 % (11.5-14.5) H 10/06/16 04:40 ABG pH 7.30 pH Units (7.32-7.45) L D 10/06/16 16:07 ABG pCO2 76 mmHg (35-45) H* D 10/06/16 16:07 ABG pO2 64 mmHg (85-104) L 10/06/16 16:07 ABG HCO3 37.4 mEQ/L (21-27) H 10/06/16 16:07 ABG Total CO2 39.7 mEq/L (20-26) H 10/06/16 16:07 ABG O2 Saturation 90 % (95-98) L 10/06/16 16:07 ABG Base Excess 6.6 mEq/L (-2.0 to 3.0) H 10/06/16 16:07 VBG pH 7.20 pH Units (7.32-7.42) L 10/05/16 19:57 VBG pCO2 92 mmHg (41-51) H 10/05/16 19:57 VBG pO2 64 mmHg (25-40) H 10/05/16 19:57 VBG HCO3 36.0 mEq/L (21-27) H 10/05/16 19:57 Carboxyhemoglobin 8.5 % (0-5) H 10/05/16 19:57 Potassium 5.4 mEq/L (3.5-4.5) H 10/06/16 04:40 Chloride 95 mEq/L (98-109) L 10/06/16 04:40 Carbon Dioxide 36 mEq/L (19-29) H 10/06/16 04:40 BUN 30 mg/dL (8-26) H 10/06/16 04:40 Creatinine 1.31 mg/dL (0.72-1.25) H 10/06/16 04:40 Est GFR (Non-Af Amer) 58 (> 60) L 10/06/16 04:40 POC Glucose 123 (58-89) H 10/05/16 23:06 Total Bilirubin 1.4 mg/dL (0.2-1.2) H 10/05/16 21:26 B-Natriuretic Peptide 885 pg/mL (0-100) H 10/05/16 14:06 Albumin 3.3 g/dL (3.5-5.0) L 10/05/16 21:26 Globulin 5.0 g/dL (2.4-3.5) H 10/05/16 21:26 Albumin/Globulin Ratio 0.7 (1.1-2.2) L 10/05/16 21:26 - Diagnostic Findings Additional studies: ECHO: Poor quality study but appears to have mildly reduced ejection fraction left atrial enlargement right ventricle enlargement right atrial enlargement Consult Discharge Plan - Plan Referrals: [facility] [Primary Care Provider] -
[2016-10-07] MEDS: Furosemide 20 MG/2 ML VIAL IVP SCH ×2 (09:08→17:38)
[2016-10-07] MEDS: Metoprolol XL (24 HR) Succ 50 MG TAB.ER.24H PO SCH (09:09)
[2016-10-07] MEDS: Lisinopril 20 MG TABLET PO SCH (09:09)
[2016-10-07] MEDS: Aspirin 325 MG TABLET PO SCH (09:09)
--- NOTE | 2016-10-07 12:18 | Electrocardiograph Report ---
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
[2016-10-07 13:27] LABS: Bilirubin,Urine Negative (Negative); Blood,Urine Negative (Negative); Clarity,Urine Clear (Clear); Color,Urine Yellow (Yellow); Glucose,Urine (UA) Normal (Normal); Ketones,Urine Negative (Negative); Leukocyte Esterase,Urine Negative (Negative); Nitrite,Urine Negative (Negative); Protein,Urine 30 mg/dL (Neg-Trace); Specific Gravity,Urine 1.014 (1.010-1.025); Urobilinogen,Urine Normal (Normal)
[2016-10-07 13:29] LABS: Bacteria,Urine None Seen per hpf (None-Few); Hyaline Casts,Urine None Seen per lpf (None-Few); RBC,Urine 0-3 per hpf (0-3); Squamous Epithelial Cell,Urine None Seen per lpf (None-Few); WBC,Urine 0-3 per hpf (0-3)
--- NOTE | 2016-10-07 15:05 | Internal Med Progress Note ---
Date of Encounter: 10/07/16 Time of Encounter: 11:00 - Assessment and plan (1) Acute on chronic respiratory failure with hypoxia and hypercapnia Current Visit: Yes Status: Acute Assessment and plan: Overall better today. Still on oxygen but not on continuous bipap. Will need qualify for overnight bipap. Continue oxygen, steroids, abx and aerosols. (2) Sciatica of right side Current Visit: Yes Status: Acute Assessment and plan: PO pain meds. No IV meds due to sedation and respiratory status. (3) COPD exacerbation Current Visit: Yes Status: Acute Assessment and plan: Somewhat better today. On steroids, aerosols, oxygena and abx. (4) Hyperkalemia Current Visit: Yes Status: Acute Assessment and plan: recheck labs (5) Hypertension Current Visit: Yes Status: Chronic Assessment and plan: Controlled at this time on current regimen. Qualifiers: Hypertension type: essential hypertension Qualified Code(s): I10 - Essential (primary) hypertension (6) Polycythemia Current Visit: Yes Status: Chronic Assessment and plan: Hgb 20.7 / Hct 69.5 - likely secondary to smoking, sleep apnea, OHS - continue to monitor (7) Tobacco abuse Current Visit: Yes Status: Chronic Assessment and plan: Nicotine gum and smoking cessation counseling (8) Obesities, morbid Current Visit: Yes Status: Chronic Assessment and plan: Counselling. - Subjective Interval history: Mr. Springer is currently admitted for acute hypercarbic hypoxia resp failure with hx of chronic resp failure. He remains high risk due to potential for worsening respiratory status. Mr. Springer is breathing better today. He is off the bipap. He is having some back pain. Stated he had surgery about a year ago and reinjured it Saturday. Received IV pain medicine at [facility] which may have worsened his breathing. Pain is like his previous sciatica. No fever or chills. Hasn't moved much yet today. - Constitutional Vitals: Temp Pulse Resp BP Pulse Ox 98.2 F 57 15 129/76 97 10/07/16 11:10 10/07/16 11:10 10/07/16 11:10 10/07/16 11:10 10/07/16 11:10 General appearance: Present: cooperative, A&O X 3, morbidly obese, answers questions appropriately - Head Head exam: Present: normocephalic - Eye Eye exam: Present: EOMI, conjuntiva pink - ENT ENT exam: Present: mucous membranes dry - Respiratory Respiratory exam: Present: decreased breath sounds, wheezes. Absent: rales, rhonchi - Cardiovascular Cardiovascular exam: Present: distant heart sounds, RRR. Absent: tachycardia - GI/Abdominal GI/Abdominal exam: Present: soft. Absent: tenderness - Extremities Exam Extremities exam: Present: pedal edema, warm. Absent: tenderness - Neurological Exam Neurological exam: Present: alert, oriented X3, no focal deficits - Psychiatric Psychiatric exam: Present: normal affect, normal mood - Skin Skin exam: Present: dry, warm. Absent: rash Internal Medicine: Result - Labs CBC & Chem 7: 10/06/16 04:40 10/06/16 04:40 Labs: Urine 10/07/16 Range/Units 13:18 Urine Color Yellow (Yellow) Urine Clarity Clear (Clear) Urine pH 6.0 (5.0-8.0) pH Units Ur Specific [place] 1.014 (1.010-1.025) Urine Protein 30 H (Neg-Trace) mg/dL Urine Glucose (UA) Normal (Normal) mg/dL - ABG Interpretation ABG results: ABG ABG pH 7.30 pH Units (7.32-7.45) L D 10/06/16 16:07 ABG pCO2 76 mmHg (35-45) H* D 10/06/16 16:07 ABG pO2 64 mmHg (85-104) L 10/06/16 16:07 ABG O2 Saturation 90 % (95-98) L 10/06/16 16:07 PT/INR, D-dimer PT 11.7 Seconds (9.4-12.1) 10/06/16 04:40 Consult Discharge Plan - Plan Referrals: [facility] [Primary Care Provider] -
[2016-10-07] MEDS ORDERED: Ketorolac 15 MG/ML VIAL IVP PRN (15:15)
[2016-10-07] MEDS ORDERED: methylPREDNISolone 125 MG/2 ML VIAL IVP SCH (15:15)
[2016-10-07] MEDS ORDERED: traMADol 50 MG TABLET PO PRN (15:17)
[2016-10-07] MEDS: Tiotropium 18 MCG inhalation IH SCH (15:34)
[2016-10-07 16:10] LABS: Hemoglobin 19.9 g/dL (12.9-16.9); Mean Corpuscular HGB Conc 31.2 g/dL (31.6-35.5); Mean Corpuscular Volume 96.1 fL (83.0-100.0); Mean Platelet Volume 10.8 fL (9.4-12.4); Platelet Count 171 K/mcL (140-400); Red Blood Count 6.64 M/mcL (4.19-5.50); Red Cell Distribution Width 17.2 % (11.5-14.5)
[2016-10-07 16:11] LABS: Hematocrit 63.8 % (37.5-50.1)
[2016-10-07 16:24] LABS: BUN/Creatinine Ratio 27 (6-26); Blood Urea Nitrogen 35 mg/dL (8-26); Calcium 9.1 mg/dL (8.6-10.8); Carbon Dioxide 32 mEq/L (19-29); Chloride 95 mEq/L (98-109); Glucose 165 mg/dL (70-99); Magnesium 2.1 mg/dL (1.6-2.6); Osmolality,Calculated 298 (280-300); Sodium 138 mEq/L (136-145); eGFR For African Americans > 60 (> 60); eGFR For Non-African Americans 58 (> 60)
[2016-10-07 16:25] LABS: Potassium 4.8 mEq/L (3.5-4.5)
[2016-10-07] MEDS: *HR* HYDROcodone/Acet 5/325 mg TABLET PO PRN (17:38)
[2016-10-08] MEDS: methylPREDNISolone 125 MG/2 ML VIAL IVP SCH ×2 (03:13→15:00)
[2016-10-08] MEDS: *HR* HYDROcodone/Acet 5/325 mg TABLET PO PRN ×3 (03:13→21:28)
[2016-10-08] MEDS: Ipratropium/Albuterol Neb 3 ML IH SCH ×4 (04:00→23:39)
[2016-10-08 05:07] LABS: BUN/Creatinine Ratio 25 (6-26); Blood Urea Nitrogen 36 mg/dL (8-26); Calcium 8.9 mg/dL (8.6-10.8); Carbon Dioxide 37 mEq/L (19-29); Chloride 96 mEq/L (98-109); Glucose 191 mg/dL (70-99); Osmolality,Calculated 303 (280-300); Sodium 140 mEq/L (136-145); eGFR For African Americans > 60 (> 60); eGFR For Non-African Americans 52 (> 60)
[2016-10-08 05:32] LABS: Potassium 4.8 mEq/L (3.5-4.5)
[2016-10-08 05:57] LABS: Hemoglobin 18.9 g/dL (12.9-16.9); Mean Corpuscular HGB Conc 29.6 g/dL (31.6-35.5); Mean Corpuscular Volume 98.2 fL (83.0-100.0); Mean Platelet Volume 10.5 fL (9.4-12.4); Platelet Count 148 K/mcL (140-400); Red Blood Count 6.51 M/mcL (4.19-5.50); Red Cell Distribution Width 17.2 % (11.5-14.5)
[2016-10-08 05:58] LABS: Hematocrit 63.9 % (37.5-50.1)
[2016-10-08] MEDS: *HR* Enoxaparin 40 MG/0.4 ML SYRINGE SQ SCH (06:01)
[2016-10-08] MEDS: Aspirin 325 MG TABLET PO SCH (08:46)
[2016-10-08] MEDS: Lisinopril 20 MG TABLET PO SCH (08:46)
[2016-10-08] MEDS: Furosemide 20 MG/2 ML VIAL IVP SCH ×2 (08:46→17:43)
[2016-10-08] MEDS: Metoprolol XL (24 HR) Succ 50 MG TAB.ER.24H PO SCH (08:46)
[2016-10-08 09:46] LABS: Amphetamines NEGATIVE ng/mL (Cutoff 30); Barbiturates NEGATIVE ng/mL (Cutoff 75); Benzodiazepines NEGATIVE ng/mL (Cutoff 75); Cocaine NEGATIVE ng/mL (Cutoff 30); Methadone NEGATIVE ng/mL (Cutoff 40); Methamphetamines NEGATIVE ng/mL (Cutoff 30); Phencyclidine NEGATIVE ng/mL (Cutoff 15)
[2016-10-08] MEDS: Tiotropium 18 MCG inhalation IH SCH (11:01)
--- NOTE | 2016-10-08 11:21 | Internal Med Progress Note ---
<Severo Morton Antwan - Last Filed: 10/08/16 14:47> Date of Encounter: 10/08/16 Time of Encounter: 11:20 - Assessment and plan (1) Acute on chronic respiratory failure with hypoxia and hypercapnia Current Visit: Yes Status: Acute Assessment and plan: Continuing to improve. Likely secondary to COPD exacerbation, OHS, SOSA. Still on oxygen but not on continuous bipap. Qualifies for overnight bipap and home O2. Continue oxygen, steroids, abx and aerosols D/C planning: acceptance of home bipap [facility] (2) Sciatica of right side Current Visit: Yes Status: Acute Assessment and plan: PO pain meds. No IV meds due to sedation and respiratory status. (3) Hyperkalemia Current Visit: Yes Status: Acute Assessment and plan: K 4.8 - stable from yesterday. Recheck labs (4) Polycythemia Current Visit: Yes Status: Chronic Assessment and plan: Hgb 20.7 / Hct 69.5 - likely secondary to smoking, sleep apnea, OHS - continue to monitor (5) Hypertension Current Visit: Yes Status: Chronic Assessment and plan: Controlled at this time on current regimen. Qualifiers: Hypertension type: essential hypertension Qualified Code(s): I10 - Essential (primary) hypertension (6) Tobacco abuse Current Visit: Yes Status: Chronic Assessment and plan: Nicotine gum and smoking cessation counseling - Subjective Interval history: Patient seen and examined. Awake and sitting up in chair. Reports that he is feeling well and has no complaints. Breathing is improved today, but still reports dyspnea on exertion. Denies chest pain, cough, abdominal pain, N/V/D, dysuria, or leg pain. Admits to bilateral lower extremity edema that is improving. - Constitutional Vitals: Temp Pulse Resp BP Pulse Ox 97.6 F 56 16 133/66 96 10/08/16 08:04 10/08/16 08:04 10/08/16 08:04 10/08/16 08:04 10/08/16 11:04 General appearance: Present: cooperative, A&O X 3, morbidly obese, answers questions appropriately - Head Head exam: Present: atraumatic, normocephalic - ENT ENT exam: Present: mucous membranes moist - Respiratory Respiratory exam: Present: CTAB. Absent: rales, rhonchi, wheezes - Cardiovascular Cardiovascular exam: Present: RRR, +S1, +S2. Absent: diastolic murmur, systolic murmur - GI/Abdominal GI/Abdominal exam: Present: normal bowel sounds, soft. Absent: distended, rigid , tenderness, no peritoneal signs - Extremities Exam Extremities exam: Present: pedal edema, warm, radial pulses palpable and symmetrical. Absent: joint swelling, tenderness Additional comments: Bilateral LE edema present - Neurological Exam Neurological exam: Present: alert, CN II-XII intact, oriented X3, no focal deficits Internal Medicine: Result - Labs CBC & Chem 7: 10/08/16 04:12 10/08/16 04:12 Labs: Short CBC 10/07/16 10/08/16 Range/Units 15:38 04:12 WBC 13.7 H D 11.7 H (4.3-11.1) K/mcL Hgb 19.9 H 18.9 H (12.9-16.9) g/dL Hct 63.8 H 63.9 H (37.5-50.1) % Plt Count 171 148 (140-400) K/mcL BMP 10/07/16 10/08/16 15:38 04:12 Sodium 138 140 Potassium 4.8 H 4.8 H Chloride 95 L 96 L Carbon Dioxide 32 H 37 H BUN 35 H 36 H Creatinine 1.30 H 1.44 H Glucose 165 H 191 H Calcium 9.1 8.9 Urine 10/07/16 Range/Units 13:18 Urine Color Yellow (Yellow) Urine Clarity Clear (Clear) Urine pH 6.0 (5.0-8.0) pH Units Ur Specific [place] 1.014 (1.010-1.025) Urine Protein 30 H (Neg-Trace) mg/dL Urine Glucose (UA) Normal (Normal) mg/dL - ABG Interpretation ABG results: ABG ABG pH 7.30 pH Units (7.32-7.45) L D 10/06/16 16:07 ABG pCO2 76 mmHg (35-45) H* D 10/06/16 16:07 ABG pO2 64 mmHg (85-104) L 10/06/16 16:07 ABG O2 Saturation 90 % (95-98) L 10/06/16 16:07 PT/INR, D-dimer PT 11.7 Seconds (9.4-12.1) 10/06/16 04:40 Consult Discharge Plan - Plan [facility]errals: [facility] Care Provider[facility] - <[email or web address] A - Last Filed: 10/08/16 19:36> Date of Encounter: 10/08/16 - Assessment and plan (1) Acute on chronic respiratory failure with hypoxia and hypercapnia Current Visit: Yes Status: Acute (2) Sciatica of right side Current Visit: Yes Status: Acute (3) COPD exacerbation Current Visit: Yes Status: Acute (4) Hyperkalemia Current Visit: Yes Status: Acute (5) Hypertension Current Visit: Yes Status: Chronic Qualifiers: Hypertension type: essential hypertension Qualified Code(s): I10 - Essential (primary) hypertension (6) Polycythemia Current Visit: Yes Status: Chronic (7) Tobacco abuse Current Visit: Yes Status: Chronic (8) Obesities, morbid Current Visit: Yes Status: Chronic - Constitutional Vitals: Temp Pulse Resp BP Pulse Ox 98.1 F 75 16 108/65 92 10/08/16 19:05 10/08/16 19:05 10/08/16 19:05 10/08/16 19:05 10/08/16 19:05 Internal Medicine: Result - Labs CBC & Chem 7: 10/08/16 04:12 10/08/16 04:12 Labs: Short CBC 10/08/16 Range/Units 04:12 WBC 11.7 H (4.3-11.1) K/mcL Hgb 18.9 H (12.9-16.9) g/dL Hct 63.9 H (37.5-50.1) % Plt Count 148 (140-400) K/mcL BMP 10/08/16 04:12 Sodium 140 Potassium 4.8 H Chloride 96 L Carbon Dioxide 37 H BUN 36 H Creatinine 1.44 H Glucose 191 H Calcium 8.9 - ABG Interpretation ABG results: ABG ABG pH 7.30 pH Units (7.32-7.45) L D 10/06/16 16:07 ABG pCO2 76 mmHg (35-45) H* D 10/06/16 16:07 ABG pO2 64 mmHg (85-104) L 10/06/16 16:07 ABG O2 Saturation 90 % (95-98) L 10/06/16 16:07 PT/INR, D-dimer PT 11.7 Seconds (9.4-12.1) 10/06/16 04:40 - Attending Attestation I examined this patient and my medical decision-making was reviewed with the Resident Physician on 10/08/16. I agree with the documented findings, disposition and treatment plan as described except to the extent set forth below. Mr. Springer is currently admitted for resp failure and COPD. He remains moderate to high risk due to potential for worsening resp status. Mr. Springer is doing OK. He is able to move around room. He qualified for bipap. [facility] No fever or chills. Exam Alert. Comfortable Heart reg Decreased breath sounds Abd soft I/P 1. Resp failure 2. COPD Further diagnoses and plan as above.
--- NOTE | 2016-10-08 13:06 | Pulmonology Progress Note ---
Date of Encounter: 10/08/16 Time of Encounter: 10:45 Assessment and Plan (1) Acute respiratory failure with hypoxia Current Visit: Yes Status: Acute Patient is feeling better with using oxygen and bronchodilators and to continue noninvasive ventilation. Patient stated he wants to follow-up with the [facility] and advised him he will need to sleep study as outpatient as well. Patient stated he will not smoke tobacco and will be happy to see him as outpatient if he decided to follow-up with us. (2) Tobacco abuse Current Visit: Yes Status: Chronic (3) COPD suggested by initial evaluation Current Visit: Yes Status: Acute Subjective Principal diagnosis: Respiratory Failure Interval history: Overall patient is feeling better and he is using his oxygen and qualified for noninvasive ventilation. Objective PUL Vital signs: Last Vital Signs Temp 97.7 F 10/08/16 11:37 Pulse 60 10/08/16 11:37 Resp 16 10/08/16 10:59 BP 119/70 10/08/16 11:37 Pulse Ox 90 10/08/16 11:37 General appearance: no acute distress Eyes: nonicteric Mallampati (class): 4 Neck: supple Effort: normal Auscultation: bilateral: diminished breath sounds Percussion: bilateral: not dull Cardiovascular: regular rate and rhythm Gastrointestinal: normoactive bowel sounds, non-distended Extremities: no cyanosis normal mental status, non-focal exam mood appropriate Results - Laboratory Findings CBC and BMP: 10/08/16 04:12 10/08/16 04:12 ABG ABG pH 7.30 pH Units (7.32-7.45) L D 10/06/16 16:07 ABG pCO2 76 mmHg (35-45) H* D 10/06/16 16:07 ABG pO2 64 mmHg (85-104) L 10/06/16 16:07 ABG O2 Saturation 90 % (95-98) L 10/06/16 16:07 PT/INR, D-dimer PT 11.7 Seconds (9.4-12.1) 10/06/16 04:40 Abnormal lab findings: Abnormal lab results WBC 11.7 K/mcL (4.3-11.1) H 10/08/16 04:12 RBC 6.51 M/mcL (4.19-5.50) H 10/08/16 04:12 Hgb 18.9 g/dL (12.9-16.9) H 10/08/16 04:12 Hct 63.9 % (37.5-50.1) H 10/08/16 04:12 MCHC 29.6 g/dL (31.6-35.5) L 10/08/16 04:12 RDW 17.2 % (11.5-14.5) H 10/08/16 04:12 ABG pH 7.30 pH Units (7.32-7.45) L D 10/06/16 16:07 ABG pCO2 76 mmHg (35-45) H* D 10/06/16 16:07 ABG pO2 64 mmHg (85-104) L 10/06/16 16:07 ABG HCO3 37.4 mEQ/L (21-27) H 10/06/16 16:07 ABG Total CO2 39.7 mEq/L (20-26) H 10/06/16 16:07 ABG O2 Saturation 90 % (95-98) L 10/06/16 16:07 ABG Base Excess 6.6 mEq/L (-2.0 to 3.0) H 10/06/16 16:07 VBG pH 7.20 pH Units (7.32-7.42) L 10/05/16 19:57 VBG pCO2 92 mmHg (41-51) H 10/05/16 19:57 VBG pO2 64 mmHg (25-40) H 10/05/16 19:57 VBG HCO3 36.0 mEq/L (21-27) H 10/05/16 19:57 Carboxyhemoglobin 8.5 % (0-5) H 10/05/16 19:57 Potassium 4.8 mEq/L (3.5-4.5) H 10/08/16 04:12 Chloride 96 mEq/L (98-109) L 10/08/16 04:12 Carbon Dioxide 37 mEq/L (19-29) H 10/08/16 04:12 BUN 36 mg/dL (8-26) H 10/08/16 04:12 Creatinine 1.44 mg/dL (0.72-1.25) H 10/08/16 04:12 Est GFR (Non-Af Amer) 52 (> 60) L 10/08/16 04:12 Glucose 191 mg/dL (70-99) H 10/08/16 04:12 POC Glucose 123 (58-89) H 10/05/16 23:06 Calculated Osmolality 303 (280-300) H 10/08/16 04:12 Total Bilirubin 1.4 mg/dL (0.2-1.2) H 10/05/16 21:26 B-Natriuretic Peptide 885 pg/mL (0-100) H 10/05/16 14:06 Albumin 3.3 g/dL (3.5-5.0) L 10/05/16 21:26 Globulin 5.0 g/dL (2.4-3.5) H 10/05/16 21:26 Albumin/Globulin Ratio 0.7 (1.1-2.2) L 10/05/16 21:26 Urine Protein 30 mg/dL (Neg-Trace) H 10/07/16 13:18 - Diagnostic Findings Chest x-ray: report reviewed, image reviewed - Clinical Findings Intake & Output: Intake & Output 10/07/16 10/08/16 10/08/16 23:59 07:59 15:59 Intake Total 240 / 240 Output Total 1500 / 1500 Balance -1500 / -1500 240 / 240 Consult Discharge Plan - Plan [facility]: [facility]Primary Care Provider] -
[2016-10-08] MEDS ORDERED: methylPREDNISolone 125 MG/2 ML VIAL IVP SCH (19:45)
[2016-10-09] MEDS: *HR* HYDROcodone/Acet 5/325 mg TABLET PO PRN (03:14)
[2016-10-09] MEDS: Ipratropium/Albuterol Neb 3 ML IH SCH ×2 (04:42→11:10)
[2016-10-09] MEDS: *HR* Enoxaparin 40 MG/0.4 ML SYRINGE SQ SCH (06:51)
--- NOTE | 2016-10-09 08:01 | Discharge Summary ---
Date of Encounter: 10/09/16 Time of Encounter: 07:59 - Discharge Diagnosis (1) Acute on chronic respiratory failure with hypoxia and hypercapnia Priority: Primary Status: Acute Comments: Acute on chronic hypoxic and hypercapnic respiratory failure secondary to acute COPD exacerbation possibly from acute viral bronchitis in combination with possible acute diastolic CHF exacerbation Echocardiogram shows an ejection fraction of 50-55% (2) Polycythemia Priority: Secondary Status: Chronic (3) Hyperkalemia Priority: Secondary Status: Acute (4) Hypertension Priority: Secondary Status: Chronic Qualifiers: Hypertension type: essential hypertension Qualified Code(s): I10 - Essential (primary) hypertension (5) Tobacco abuse Priority: Secondary Status: Chronic (6) COPD exacerbation Priority: Primary Status: Acute - Discharge Medications Prescriptions: HYDROcodone/Acet 5/325 mg [[place] 5-325 mg] 1 tab PO Q4HR PRN #20 tab PRN Reason: Pain Furosemide [Lasix] 20 mg PO BID #60 predniSONE [PredniSONE] 10 mg PO DAILY 20 Days Home Medications: Allopurinol [Zyloprim 100 MG] 100 mg PO DAILY 10/05/16 [History] Aspirin 325 mg PO DAILY 10/05/16 [History] Lisinopril [Zestril] 40 mg PO DAILY 10/05/16 [History] Metoprolol Succinate 100 mg PO DAILY 10/05/16 [History] Naproxen [Naprosyn] 500 mg PO BID PRN 10/05/16 [History] Furosemide [Lasix] 20 mg PO BID #60 10/09/16 [Rx] HYDROcodone/Acet 5/325 mg [[place] 5-325 mg] 1 tab PO Q4HR PRN #20 tab 10/09/16 [ Rx] predniSONE [PredniSONE] 10 mg PO DAILY 20 Days 10/09/16 [Rx] Allergies/Adverse Reactions: Allergies No Known Allergies Allergy (Verified 10/05/16 13:45) Procedures/tests Complete & Pending: Procedures Performed prior 72 hours Category Date Time Status EV echocardiogram w enhance Routine Y 10/06/16 21:04 Completed Date of admission: 10/05/16 18:52 [facility] care physician: [facility] Consults: 10/05/16 23:00 Consult to Pulmonology [CONS] Routine Consulting Provider: [facility] Reason for Consult: Admitted for acute on chronic hypoxic & hypercapnic respiratory failure for unknown etiology. No acute abnormality or PE per CTA chest except some mediastinal adenopathy. Currently on BiPAP. Appreciate pulmonology for further evaluation and recommendations. Will call in the AM. Call Completed: No - Patient Status Disposition: Home, Self-Care Condition: Fair Overall status at discharge: patient is progressing back to baseline - Discharge Instructions Follow Up With: [facility] [[facility] Care Provider[facility] - Additional Instructions: Follow-up with primary care physician within the next 7 days. Follow-up with pulmonary services within the next 3-4 weeks. Continue BiPAP in taper prednisone. Quit smoking. Increase Lasix to 20 mg twice daily - Diet and Activity Activity: increase activity as tolerated Diet: low fat, low cholesterol Hospital course: Mr. schneider is a 51 year old male with PMH of HTN tobacco use. Patient initially presented to [place] with abdominal pain below umbilicus which he thought it's related to his chronic low back pain s/p hernia disc repair. [facility], patient was noted to have blue-tinged lip and found to have O2 sat at 70s %. Concern of PE but [place] cannot get CTA chest done due to patient's claustrophobia. Therefore patient was sent to [facility] ED, where CTA chest was done and showed no evidence of pulmonary embolism or acute pulmonary abnormality except mild mediastinal adenopathy of uncertain etiology. Patient reported noticing blue- tinged lips also increase in fatigue, BLE swelling and poor appetite for a week. Patient also has some dyspnea on exertion but not at rest or orthopnea. Patient denied chest pain/discomfort, palpitations, lightheadedness, syncope, cough, fever. Patient admits snoring at nighttime but never had any work-up for sleep apnea in the past. Patient smokes 1 pack per day for more than 30 years but denied EtOH or illicit drug use. 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 Patient also has potential exposure to closed environment like garage but reports it's usually well ventilated. Was noted to have O2 sat drop to as low as 77% when walking. ABG showed pH 7.17, pCO2 106, pO2 84 and HCO3 38.7 on 6L NC. Was started on IV Solu-Medrol and Lasix. Potassium was 5.3 upon admission and improved. Was evaluated bythepulmonaryservice is a scheduled to continue oxygen therapy and BiPAP at home. [facility] Time spent discussing smoking cessation with patient: 3 to 10 minutes - Time Spent with Patient Total time spent providing and/or coordinating discharge services: Greater than 30 minutes (40 minutes) - Constitutional Vitals: Temp Pulse Resp BP Pulse Ox 97.7 F 65 18 150/89 93 10/09/16 04:18 10/09/16 04:10/09/16 04:42 10/09/16 04:10/09/16 04:46 General appearance: Present: cooperative, A&O X 3, morbidly obese, answers questions appropriately - Head Head exam: Present: atraumatic, normocephalic - Eye Eye exam: Present: PERRL, conjuntiva pink, sclera anicteric Pupils: Present: PERRL - Neck Neck exam general surgery: Present: supple, trachea midline. Absent: lymphadenopathy - Respiratory Respiratory exam: Present: decreased breath sounds, CTAB. Absent: accessory muscle use, rales, rhonchi, wheezes - Cardiovascular Cardiovascular exam: Present: RRR, +S1, +S2. Absent: diastolic murmur, gallop, rubs, systolic murmur - GI/Abdominal GI/Abdominal exam: Present: distended, normal bowel sounds, soft, no peritoneal signs. Absent: tenderness - Extremities Exam Extremities exam: Present: warm, radial pulses palpable and symmetrical. Absent : calf tenderness, cyanotic, pedal edema - Neurological Exam Neurological exam: Present: CN II-XII intact, oriented X3, no focal deficits. Absent: pronater drift, facial droop, speech deficit - Skin Skin exam: Present: dry, intact
--- NOTE | 2016-10-09 08:10 | Physician Discharge Referral ---
Home Health/Hosp Referral Info Transfer to: Home Health Provider in Charge Post Discharge: PCP - Diagnosis (1) Acute on chronic respiratory failure with hypoxia and hypercapnia Status: Acute (2) Polycythemia Status: Chronic (3) Hyperkalemia Status: Acute (4) Hypertension Status: Chronic (5) Tobacco abuse Status: Chronic (6) COPD exacerbation Status: Acute - Respiratory Orders Smoking Cessation: Smoking cessation has been advised. For more information, call the [place] Tobacco Quit Line at 3-845-ZUQX-NOW. - Diet/Nutrition Diet/Nutrition Orders: No Added Salt (YOMI) - Services Needed Following services are medically necessary services: Physical Therapy Home Care Orders: Follow-up with primary care physician within the next 7 days. Follow-up with pulmonary services within the next 3-4 weeks. Continue BiPAP in taper prednisone. Quit smoking. Increase Lasix to 20 mg twice daily - Transfer Medications Prescriptions: HYDROcodone/Acet 5/325 mg [[place] 5-325 mg] 1 tab PO Q4HR PRN #20 tab PRN Reason: Pain Furosemide [Lasix] 20 mg PO BID #60 predniSONE [PredniSONE] 10 mg PO DAILY 20 Days Home Medications: Allopurinol [Zyloprim 100 MG] 100 mg PO DAILY 10/05/16 [History] Aspirin 325 mg PO DAILY 10/05/16 [History] Lisinopril [Zestril] 40 mg PO DAILY 10/05/16 [History] Metoprolol Succinate 100 mg PO DAILY 10/05/16 [History] Naproxen [Naprosyn] 500 mg PO BID PRN 10/05/16 [History] Furosemide [Lasix] 20 mg PO BID #60 10/09/16 [Rx] HYDROcodone/Acet 5/325 mg [[place] 5-325 mg] 1 tab PO Q4HR PRN #20 tab 10/09/16 [ Rx] predniSONE [PredniSONE] 10 mg PO DAILY 20 Days 10/09/16 [Rx] Allergies/Adverse Reactions: Allergies No Known Allergies Allergy (Verified 10/05/16 13:45) Certification: Further, I certify that my clinical findings support that this patient is homebound (i.e. absences from home require considerable and taxing effort and are for medical reasons or jainism services or infrequently or short duration when for other reasons) because: Homebound Reason: Patient requires assistance of a person or device to safely leave home Attestation: My signature below is to certify that this patient is under my care and that I, or nurse practitioner, or a physician's phlebotomist lab assistant working with me, has a face-to -face encounter with this patient.
[2016-10-09 08:18] VITALS: BP 160/103
[2016-10-09 08:21] LABS: Opiates POSITIVE ng/mL (Cutoff 30)
[2016-10-09] MEDS: Tiotropium 18 MCG inhalation IH SCH (11:10)
[2016-10-09 18:19] LABS: Hydrocodone Confirmation <2 ng/mL
[2016-10-10 08:21] LABS: 6_Acetylmorphine Confirmation <2 ng/mL; Oxymorphone Confirmation <2 ng/mL
== END 2016-10-09 10:58 | disposition home or self-care (01) | DRG 190 ==
LOC: EMEROO 13:42 → SUATTDRO 18:52 → 3BNU 18:52
PROVIDERS: ADMIT Internal Medicine Endocrinology, Diabetes & Metabolism; ATTEND Internal Medicine